=== PATIENT | female | born 1980 | race Caucasian/White ===

== ENCOUNTER 2017-09-14 06:09 | Day surgery (SDC) | payer OTHER ==
[~2017-09-14] VITALS: Ht 162.6 cm; Wt 73.9 kg
[2017-09-14] MEDS ORDERED: CEFAZOLIN 1 GM IVPB PREMIX 50 ML IV ONE (06:30)
[2017-09-14] MEDS ORDERED: BUPIVACAINE /PF 0.25% 30 ML VIAL INJ ONE (08:01)
[2017-09-14] MEDS ORDERED: fentaNYL CITRATE/PF 100 MCG/2 ML AMP IVP ONE (08:01)
[2017-09-14] MEDS ORDERED: SUCCINYLCHOLINE CHLORIDE 20 MG/ML(QUELICIN) IVP ONE (08:01)
[2017-09-14] MEDS ORDERED: LR 1,000 ML IV.SOLN IV ONE (08:01)
[2017-09-14] MEDS ORDERED: DEXAMETHASONE SOD PHOSPHATE 4 MG/ML VIAL IVP ONE (08:01)
[2017-09-14] MEDS ORDERED: ROCURONIUM BROMIDE 10 MG/ML (ZEMURON) IV ONE (08:01)
[2017-09-14] MEDS ORDERED: SEVOFLURANE 15 MIN GAS INH ONE (08:01)
[2017-09-14] MEDS ORDERED: PROPOFOL 200MG/ 20ML VIAL (DIPRIVAN) IV ONE (08:01)
[2017-09-14] MEDS ORDERED: NS IRRIG SOLN 1000 ML IR ONE (08:01)
[2017-09-14] MEDS ORDERED: LR 1,000 ML IV ONE (08:59)
[2017-09-14] MEDS ORDERED: NALOXONE HCL 0.4 MG/ML AMP (NARCAN) IVP PRN (09:00)
[2017-09-14] MEDS ORDERED: DIPHENHYDRAMINE INJ 50 MG/ML VIAL IVP PRN (09:00)
[2017-09-14] MEDS ORDERED: fentaNYL CITRATE/PF 100 MCG/2 ML AMP IVP PRN (09:00)
[2017-09-14] MEDS ORDERED: NALBUPHINE HCL 10 MG/ML AMP IVP PRN (09:00)
[2017-09-14] MEDS ORDERED: ONDANSETRON HCL 4 MG/2 ML VIAL IVP PRN ×3 (09:00→10:15)
[2017-09-14] MEDS ORDERED: ePHEDrine sulfate 50 MG/ML VIAL IVP PRN (09:00)
[2017-09-14] MEDS ORDERED: OXYCODONE/ACETAMINOPHEN 5-325 TABLET PO PRN ×2 (10:15)
[2017-09-14] MEDS ORDERED: HYDROcodone/ACETAMIN 5-325 MG TAB (NORCO/ VICODIN) PO PRN (10:15)
[2017-09-14 12:23] VITALS: BP_SYST 150
[2017-09-14] MEDS ORDERED: KETOROLAC TROMETHAMINE 30 MG VIAL IVP ONE (14:00)
== END 2017-09-14 13:50 | disposition home or self-care (01) ==
LOC: SDS 06:09 → SMU 06:10 → SDS 13:50
PROVIDERS: ATTEND Specialist
DX: D25.2 Subserosal leiomyoma of uterus (principal); N72 Inflammatory disease of cervix uteri; N80.0 Endometriosis of uterus; N93.8 Other specified abnormal uterine and vaginal bleeding; K76.0 Fatty (change of) liver, not elsewhere classified; E66.3 Overweight; F41.9 Anxiety disorder, unspecified; Z79.1 Long term (current) use of non-steroidal anti-inflammatories (NSAID); Z79.899 Other long term (current) drug therapy; Z98.51 Tubal ligation status
CPT/HCPCS: 58571; 52000; 88307; C1727; J0330; J0690; J1100; J2704; J3010; J3490; J7120